=== PATIENT | male | born 1955 | race Caucasian/White ===

== ENCOUNTER 2020-11-20 07:00 | Outpatient (CLI) | payer OTHER | END 2020-11-20 23:59 | disposition home or self-care (01) | LOC: COV 07:00 | PROVIDERS: ATTEND Physical Medicine & Rehabilitation Pain Medicine | DX: Z01.812 Encounter for preprocedural laboratory examination (principal); Z20.822 Contact with and (suspected) exposure to COVID-19 ==

== ENCOUNTER 2021-01-01 08:00 | Outpatient (CLI) | payer MEDICARE | END 2021-01-01 23:59 | disposition home or self-care (01) | LOC: COV 08:00 | PROVIDERS: ATTEND Physical Medicine & Rehabilitation Pain Medicine | DX: Z01.812 Encounter for preprocedural laboratory examination (principal); Z20.822 Contact with and (suspected) exposure to COVID-19 ==